=== PATIENT | female | born 1955 | race Caucasian/White ===

== ENCOUNTER 2021-01-24 08:56 | Inpatient (IN) | payer MEDICARE, OTHER ==
[~2021-01-24] VITALS: Ht 167.6 cm; Wt 88.0 kg
[2021-01-24] MEDS ORDERED: IV NS 1000 ML 1,000 ML IV ONE (10:00)
[2021-01-24] MEDS ORDERED: CEFTRIAXONE 1 G in IV DEXTROSE 5% 50 ML IV ONE (10:00)
[2021-01-24] MEDS ORDERED: DOXY100T2 PO (10:01)
[2021-01-24] MEDS ORDERED: THIA100T13 PO (10:01)
[2021-01-24] MEDS ORDERED: MULT-594 PO (10:01)
[2021-01-24] MEDS ORDERED: PANT40TA49 PO (10:01)
[2021-01-24] MEDS ORDERED: FOLI1TAB94 PO (10:01)
[2021-01-24] MEDS ORDERED: LACTOBACILLUS PO (10:01)
[2021-01-24] MEDS ORDERED: NITR100C6 PO (10:04)
[2021-01-24] MEDS ORDERED: CEFTRIAXONE /D5W 50ML IVPB **ER PYXIS IV ONE (10:06)
[2021-01-24 10:14] LABS: HEMATOCRIT 44.4 % (31.2-41.9); MEAN CORPUSCULAR HEMOGLOBIN 34.1 uug (24.7-32.8); MEAN CORPUSCULAR VOLUME 102.1 fL (75.5-95.3); PLATELET COUNT (AUTO) 298 K/uL (179-408)
[2021-01-24 10:36] LABS: CREATININE 1.3 mg/dL (0.6-1.3); POTASSIUM 3.9 mmol/L (3.5-5.1)
[2021-01-24 10:41] LABS: BILIRUBIN,DIRECT 0.2 mg/dL (0.0-0.2); BILIRUBIN,TOTAL 0.7 mg/dL (0.2-1.0)
[2021-01-24] MEDS ORDERED: MAGNESIUM HYDROXIDE 30 ML LIQUID UDC PO PRN (12:15)
[2021-01-24] MEDS ORDERED: MAG HYDROX/AL HYDROX/SIMETH 30 ML LIQUID UDC PO PRN (12:15)
[2021-01-24] MEDS ORDERED: TEMAZEPAM 7.5 MG CAPSULE PO PRN (12:15)
--- NOTE | 2021-01-24 12:47 | NUR ---
PT BEDDING WET, PT UNABLE TO STAND UP FOR CLEANING. PT REFUSED PERINEAL HYGIENE TO BE PROVIDED ON BED. REDNESS, SCANT AMOUNT OF PUSS NOTICED ON BORDER OF BOTH BUTTOCKS. Addendum: 01/24/21 at 1253 by NIKOLAS AWARE.
--- NOTE | 2021-01-24 13:00 | NUR ---
pt transfered to [facility] in stable condition. pt food tray sent with pt.
[2021-01-24 15:03] VITALS: BP 153/98
--- NOTE | 2021-01-24 15:15 | NUR ---
Admitted a 65 yrs old patient from ER with 5150 for GD due to she was found next to her significant other after several hrs, 911 was called noted patient was covered in feces and urine .On face to face assessment, patient is A/Ox1, forgetful, short term memory impaired, guarded, stated "It is .. Saturday..", denies SI/HI, denies AH/VH, believes that it is a mistake for her to be here, "I am not crazy..", depressed mood and angry affect, "I don't know why I am here..",unable to formulate a viable plan for self care.patient had wound on coccyx area .wound care consult ordered, unable to take picture due to patient refused.Dr. Ha aware of admission and order was done.
[2021-01-24 20:31] VITALS: BP 113/54
[2021-01-25 07:30] VITALS: BP 127/56
[2021-01-25 07:30] LABS: BILIRUBIN,TOTAL 0.5 mg/dL (0.2-1.0); CREATININE 0.9 mg/dL (0.6-1.3); POTASSIUM 3.6 mmol/L (3.5-5.1); TOTAL PROTEIN, SERUM 6.3 g/dL (6.4-8.2)
--- NOTE | 2021-01-25 09:32 | NUR ---
Firearms Report: Waste Disposal Leakage Tester completed and submitted a [employer] firearms report for 5150 grave disability certifications. A copy of report has been placed in patient chart.
[2021-01-25] MEDS: PANTOPRAZOLE SODIUM 40 MG TABLET.DR PO SCH (09:43)
[2021-01-25] MEDS: FOLIC ACID 1 MG TABLET PO SCH (09:43)
[2021-01-25] MEDS: THIAMINE HCL 100 MG TABLET PO SCH (09:45)
--- NOTE | 2021-01-25 09:47 | NUR ---
Treatment Plan: Patient refused to sign treatment plan due to depressed mood.
--- NOTE | 2021-01-25 09:55 | NUR ---
SAMEERA Initial Discharge Plan: Patient currently resides at [address] [place] [address] by herself. Patient has a son Jake Beltran ([phone]) who is involved in her care. Patient would like SNF placement upon discharge. SAMEERA will continue to work with patient, family, and MD to ensure a safe and proper discharge plan.
--- NOTE | 2021-01-25 10:00 | NUR ---
SAMEERA Family Contact: SW spoke with patient's son Jake Beltran ([phone]) and discussed treatment and discharge plan. Jake is agreeable with SNF options.
--- NOTE | 2021-01-25 10:21 | NUR ---
WOUND CARE CONSULT: PT PRESENTS WITH SACRAL DEEP TISSUE INJURY IN EVOLUTION WHICH EXTENDS TO BUTTOCKS, PRESENT ON ADMISSION. SOME VAGINAL BLEEDING NOTED. RN TO DISCUSS WITH MD. SURGICAL CONSULT CALLED TO DR COLBY. RECOMMENDATIONS MADE FOR SKIN PROTECTION AND WOUND CARE. DISCUSSED WITH NURSING STAFF. MD IN AGREEMENT WITH PLAN OF CARE. Addendum: 01/25/21 at 1025 by CONNIE QUESADA RN Amended: Links added.
[2021-01-25] MEDS: DOXYCYCLINE HYCLATE 100 MG TABLET PO SCH ×2 (10:22→18:10)
[2021-01-25] MEDS ORDERED: SERTRALINE HCL 50 MG TABLET PO SCH (13:00)
[2021-01-25 16:09] VITALS: BP 144/84
[2021-01-25 20:02] VITALS: BP 147/68
[2021-01-25] MEDS: Z GUARD REMEDY PASTE 57 GM TUBE TOP SCH (22:27)
[2021-01-26 07:30] VITALS: BP 124/71
[2021-01-26] MEDS: FOLIC ACID 1 MG TABLET PO SCH (09:22)
[2021-01-26] MEDS: THIAMINE HCL 100 MG TABLET PO SCH (09:22)
[2021-01-26] MEDS: PANTOPRAZOLE SODIUM 40 MG TABLET.DR PO SCH (09:22)
[2021-01-26] MEDS: DOXYCYCLINE HYCLATE 100 MG TABLET PO SCH ×2 (09:22→16:42)
[2021-01-26] MEDS: Z GUARD REMEDY PASTE 57 GM TUBE TOP SCH ×2 (09:23→16:12)
--- NOTE | 2021-01-26 11:14 | NUR ---
SAMEERA SNF Referral: SAMEERA faxed patient's referral packet to the following SNFs for review and placement: [facility] attention to [place] ( ) [facility] attention to [place] (fax: [phone])
--- NOTE | 2021-01-26 12:13 | NUR ---
Gps/Cap Cutter- Wounfd care to sacrococcygeal area done as ordered , encouraged to stay off her back, kept skin dry and clean, good hygiene was encouraged , site cleansed with NS pat dry, -Z-guard applied, site covered wit abd.
[2021-01-26] MEDS ORDERED: SERTRALINE HCL 50 MG TABLET PO SCH (13:00)
[2021-01-26 16:00] VITALS: BP 122/62
--- NOTE | 2021-01-26 17:22 | NUR ---
Gps/Dean Of Education- Wounfd care to sacrococcygeal area done second time this pm, right after her shower, noted scanty bleeding noted during wound care, encouraged to stay off her buttom when in bed, encouraged frequent repositioning. Lower ext. are very dry, poorly groomed toe naisl, skin callous /dryness noted, patches of redness on her heels /soles of her feet. Patient flat stayed in bed most of the afternoon after her shower, encouraged to verbalized needs and feelings.
[2021-01-26 20:00] VITALS: BP 165/70
[2021-01-27] MEDS: Z GUARD REMEDY PASTE 57 GM TUBE TOP PRN (01:38)
--- NOTE | 2021-01-27 06:21 | NUR ---
GPS: Pt.slept for 8.30 last night. Pt.was uncooperative during wound care to sacral area. Encouraged to stay on her sides only while in bed. Encouraged diaper change after each episodes of incontinence. Pt.is forgetful and with poor insight to present situation. Fall precautions observed. Will continue to monitor.
[2021-01-27 07:30] VITALS: BP 144/65
--- NOTE | 2021-01-27 08:32 | NUR ---
Gps/China Painter- Stayed up in the activity room during her breakfast . Melita patel. Instructed to go to the bathroom when needed , wears diaper. Encouraged pressure relief on her sacrococcygeal wounds
[2021-01-27] MEDS: PANTOPRAZOLE SODIUM 40 MG TABLET.DR PO SCH (08:42)
[2021-01-27] MEDS: DOXYCYCLINE HYCLATE 100 MG TABLET PO SCH ×2 (08:43→16:17)
[2021-01-27] MEDS: FOLIC ACID 1 MG TABLET PO SCH (08:43)
[2021-01-27] MEDS: Z GUARD REMEDY PASTE 57 GM TUBE TOP SCH ×2 (08:44→20:13)
[2021-01-27] MEDS: THIAMINE HCL 100 MG TABLET PO SCH (08:52)
--- NOTE | 2021-01-27 09:38 | NUR ---
SW SNF Referral: Patient is accepted at [facility] for placement.
--- NOTE | 2021-01-27 09:39 | NUR ---
SAMEERA Family Contact: SW spoke with patient's son, Jake Beltran ([phone]) and informed of patient being accepted at [facility] for placement and he is agreeable with this discharge plan.
[2021-01-27] MEDS: SERTRALINE HCL 50 MG TABLET PO SCH (12:28)
[2021-01-27] MEDS: NITROFURANTOIN/NITROFURAN MAC 100 MG CAPSULE PO SCH ×2 (13:00→22:19)
--- NOTE | 2021-01-27 14:31 | NUR ---
Gps/Artificial Leather Calender Operator- Large amount of bladder incontienence as well as stains of mushy stools while in bed, asked patient if she knowns when she needs to go to the bathroom , claimed sjnorth does, when asked why she didnt go to the bathroom she will not answers.. Noted urine paddel with stain of blood in her diaper and pads, wound care to sacrococcygeal area was done second time, whole bed sheets was changed, , hosp. gown soaked with urine, patient staying one side . When tried to clean her riri- area scanty blood smears noted, diaper appied , dressing to sacrococcygeal area secured. Will continue to monitor where scanty bleedings coming from .
--- NOTE | 2021-01-27 15:54 | NUR ---
Gps/Drill Press Operator Numerical Control- Patient claimed she does not know realyy where she's at, she thinks she is in a [facility]. Grey is oriented to her self , needed reorientation redirections from time to time . Slow in her responses,.. Walks around with her walker.
[2021-01-27] MEDS: LORAZEPAM 0.5 MG TABLET PO PRN (16:23)
[2021-01-27 16:36] VITALS: BP 156/78
[2021-01-27 20:19] VITALS: BP 136/70
--- NOTE | 2021-01-28 06:22 | NUR ---
GPS: Pt.slept for 7.15 last night. Showered by staff earlier and wound care was done to sacral/buttocks area as ordered. Re-directed prn. Behavior monitoring continues.
[2021-01-28 07:30] VITALS: BP 175/75
[2021-01-28] MEDS: Z GUARD REMEDY PASTE 57 GM TUBE TOP SCH ×2 (09:00→20:24)
[2021-01-28] MEDS: NITROFURANTOIN/NITROFURAN MAC 100 MG CAPSULE PO SCH ×2 (09:00→20:21)
[2021-01-28] MEDS: FOLIC ACID 1 MG TABLET PO SCH (09:00)
[2021-01-28] MEDS: THIAMINE HCL 100 MG TABLET PO SCH (09:00)
[2021-01-28] MEDS: DOXYCYCLINE HYCLATE 100 MG TABLET PO SCH ×2 (09:00→16:21)
[2021-01-28] MEDS: PANTOPRAZOLE SODIUM 40 MG TABLET.DR PO SCH (09:00)
--- NOTE | 2021-01-28 11:49 | NUR ---
Received patient in bed, verbally responsive, cooperative upon assessment. Dressing changed on the sacral area. All due meds given per MD order. Patient denies of any pain . All needs met promptly.
[2021-01-28] MEDS: SERTRALINE HCL 50 MG TABLET PO SCH (12:09)
[2021-01-28 15:14] VITALS: BP 173/77
[2021-01-28 19:58] VITALS: BP 148/72
[2021-01-29] MEDS: DOXYCYCLINE HYCLATE 100 MG TABLET PO SCH ×2 (08:07→17:03)
[2021-01-29] MEDS: NITROFURANTOIN/NITROFURAN MAC 100 MG CAPSULE PO SCH ×2 (08:07→20:05)
[2021-01-29] MEDS: THIAMINE HCL 100 MG TABLET PO SCH (08:07)
[2021-01-29] MEDS: PANTOPRAZOLE SODIUM 40 MG TABLET.DR PO SCH (08:07)
[2021-01-29] MEDS: Z GUARD REMEDY PASTE 57 GM TUBE TOP SCH ×2 (08:08→20:06)
[2021-01-29] MEDS: FOLIC ACID 1 MG TABLET PO SCH (08:08)
[2021-01-29 09:09] VITALS: BP 158/76
[2021-01-29] MEDS: SERTRALINE HCL 50 MG TABLET PO SCH (12:28)
[2021-01-29 16:34] VITALS: BP 149/77
--- NOTE | 2021-01-29 18:20 | NUR ---
patient is isolative remains mod. assisted with all ADLS, vital sign stable ,compliant with all medication ,denies any pain or discomfort. wound care done ,able to reposition in bed by her self keep skin dry and clean at all time.
[2021-01-29] MEDS: LORAZEPAM 0.5 MG TABLET PO PRN (20:05)
[2021-01-29 20:15] VITALS: BP 103/64
[2021-01-29] MEDS: ACETAMINOPHEN 325 MG TABLET PO PRN (20:15)
--- NOTE | 2021-01-30 04:44 | NUR ---
Pt refused to get out of bed the entire shift. She remains depressed and anxious, prn Ativan administered for restlessness and anxiety. Denies SI, verbally contracts for safety. VS stable, denies pain.
[2021-01-30 06:49] LABS: HEMATOCRIT 37.1 % (31.2-41.9); MEAN CORPUSCULAR HEMOGLOBIN 34.6 uug (24.7-32.8); MEAN CORPUSCULAR VOLUME 98.7 fL (75.5-95.3); PLATELET COUNT (AUTO) 345 K/uL (179-408)
[2021-01-30 07:44] VITALS: BP 131/73
[2021-01-30] MEDS: THIAMINE HCL 100 MG TABLET PO SCH (08:08)
[2021-01-30] MEDS: FOLIC ACID 1 MG TABLET PO SCH (08:08)
[2021-01-30] MEDS: NITROFURANTOIN/NITROFURAN MAC 100 MG CAPSULE PO SCH ×2 (08:08→20:33)
[2021-01-30] MEDS: PANTOPRAZOLE SODIUM 40 MG TABLET.DR PO SCH (08:09)
[2021-01-30] MEDS: Z GUARD REMEDY PASTE 57 GM TUBE TOP SCH ×2 (08:09→20:34)
--- NOTE | 2021-01-30 09:34 | NUR ---
SAMEERA PC Hearing: Patient had 5250 probable cause hearing today and it was upheld for grave disability.
[2021-01-30] MEDS: SERTRALINE HCL 50 MG TABLET PO SCH (12:16)
[2021-01-30] MEDS: PROTEIN SUPPLEMENT (PROSTAT) 30 ML LIQUID PO SCH ×2 (13:07→16:46)
[2021-01-30 16:47] VITALS: BP 143/55
[2021-01-30 20:07] VITALS: BP 142/61
[2021-01-31] MEDS: PANTOPRAZOLE SODIUM 40 MG TABLET.DR PO SCH (08:12)
[2021-01-31] MEDS: FOLIC ACID 1 MG TABLET PO SCH (08:12)
[2021-01-31] MEDS: NITROFURANTOIN/NITROFURAN MAC 100 MG CAPSULE PO SCH ×2 (08:12→21:16)
[2021-01-31 09:00] VITALS: BP 140/82
[2021-01-31] MEDS: PROTEIN SUPPLEMENT (PROSTAT) 30 ML LIQUID PO SCH ×3 (09:35→17:59)
[2021-01-31] MEDS: Z GUARD REMEDY PASTE 57 GM TUBE TOP SCH ×2 (09:35→21:16)
[2021-01-31] MEDS: THIAMINE HCL 100 MG TABLET PO SCH (09:35)
--- NOTE | 2021-01-31 11:34 | NUR ---
GPS: pt on bed, verbally aggressive to staff and psychiatrist that visited her. pt refused medications offered. Addendum: 01/31/21 at 1212 by DOMITILA BRAVO LVN GPS: Nursing Notes: Wrong Patient: Disregard above charting, charted on the wrong patient.
[2021-01-31] MEDS: SERTRALINE HCL 50 MG TABLET PO SCH (12:51)
--- NOTE | 2021-01-31 13:06 | NUR ---
GPS: Pt alert and verbally responsive. cooperative with care. treatment done to sacral area. no episode of aggressive behavior at this time. pt likes to stay at her bedroom. compliant with medication.
[2021-01-31 16:00] VITALS: BP 158/68
--- NOTE | 2021-01-31 19:06 | NUR ---
GPS: Treatment done again for the second time. pt took off the diaper and throw it behind the bed. pt compliant with medication. no aggressive behavior noted. cooperative with care.
[2021-01-31 20:51] VITALS: BP 145/71
[2021-02-01 07:30] VITALS: BP 111/48
[2021-02-01] MEDS: FOLIC ACID 1 MG TABLET PO SCH (08:42)
[2021-02-01] MEDS: PANTOPRAZOLE SODIUM 40 MG TABLET.DR PO SCH (08:43)
[2021-02-01] MEDS: THIAMINE HCL 100 MG TABLET PO SCH (08:43)
[2021-02-01] MEDS: NITROFURANTOIN/NITROFURAN MAC 100 MG CAPSULE PO SCH ×2 (08:43→20:40)
[2021-02-01] MEDS: PROTEIN SUPPLEMENT (PROSTAT) 30 ML LIQUID PO SCH ×3 (08:43→16:46)
[2021-02-01] MEDS: Z GUARD REMEDY PASTE 57 GM TUBE TOP SCH ×2 (08:43→20:48)
--- NOTE | 2021-02-01 09:30 | NUR ---
GPS: Received patient in bed, verbally responsive, cooperative upon assessment. Dressing changed on the sacral area. Patient denies of any pain . All needs met promptly. continue plan of care.
[2021-02-01] MEDS: SERTRALINE HCL 50 MG TABLET PO SCH (12:32)
[2021-02-01 16:00] VITALS: BP 142/47
[2021-02-01 19:45] VITALS: BP 137/70
[2021-02-02 07:30] VITALS: BP 157/75
[2021-02-02] MEDS: FOLIC ACID 1 MG TABLET PO SCH (08:59)
[2021-02-02] MEDS: THIAMINE HCL 100 MG TABLET PO SCH (08:59)
[2021-02-02] MEDS: PANTOPRAZOLE SODIUM 40 MG TABLET.DR PO SCH (08:59)
[2021-02-02] MEDS: NITROFURANTOIN/NITROFURAN MAC 100 MG CAPSULE PO SCH ×2 (08:59→20:16)
[2021-02-02] MEDS: PROTEIN SUPPLEMENT (PROSTAT) 30 ML LIQUID PO SCH ×3 (09:00→17:00)
[2021-02-02] MEDS: Z GUARD REMEDY PASTE 57 GM TUBE TOP SCH ×2 (12:15→20:14)
[2021-02-02] MEDS: SERTRALINE HCL 50 MG TABLET PO SCH (13:29)
[2021-02-02] MEDS: ACETAMINOPHEN 325 MG TABLET PO PRN ×2 (13:29→17:19)
--- NOTE | 2021-02-02 13:45 | NUR ---
Gps/Plate Worker Helper- Wound care to sacrococcygeal area done as ordered, scanty bleeding from her diaper noted, unable to note when bleedings is really coming from. Good riri-care was rendered. , open area from wound, yellowish discolorations , Encouraged pressure relief, staying off her back. Lower ext. dry, poorly groomed toenails.
[2021-02-02 16:07] VITALS: BP 163/62
[2021-02-02 19:59] VITALS: BP 121/60
[2021-02-03] MEDS: Z GUARD REMEDY PASTE 57 GM TUBE TOP PRN (05:56)
[2021-02-03] MEDS: Z GUARD REMEDY PASTE 57 GM TUBE TOP SCH ×2 (08:07→20:07)
[2021-02-03] MEDS: FOLIC ACID 1 MG TABLET PO SCH (08:07)
[2021-02-03] MEDS: PANTOPRAZOLE SODIUM 40 MG TABLET.DR PO SCH (08:07)
[2021-02-03] MEDS: PROTEIN SUPPLEMENT (PROSTAT) 30 ML LIQUID PO SCH ×3 (08:07→16:13)
[2021-02-03] MEDS: THIAMINE HCL 100 MG TABLET PO SCH (08:07)
[2021-02-03 08:49] VITALS: BP 134/71
--- NOTE | 2021-02-03 13:06 | NUR ---
SW Family Contact: This SW spoke with patients son Jake ([phone]) and stated that pt is accepted at [facility] and will be discharged Saturday02/06/21. He was agreeable with this plan.
[2021-02-03] MEDS: SERTRALINE HCL 50 MG TABLET PO SCH (13:22)
[2021-02-03 16:49] VITALS: BP 172/80
--- NOTE | 2021-02-03 17:01 | NUR ---
Patient refuse to get up from bed, compliant with medication. Patient had shower and able to change dressing, reposition and ecourage patient to turn side for skin care. no agitation noted. will continue monitor
[2021-02-03 17:53] VITALS: BP 128/59
[2021-02-03 19:45] VITALS: BP 145/76
--- NOTE | 2021-02-04 00:42 | NUR ---
GPS: Asleep at this time. Wound care to sacral /buttocks area done earlier as ordered. Continues to reposition self from side to side Q2 hrs and prn. Denied SI. Will continue to monitor.
[2021-02-04] MEDS: Z GUARD REMEDY PASTE 57 GM TUBE TOP PRN (06:37)
[2021-02-04 07:30] VITALS: BP 136/36
[2021-02-04] MEDS: FOLIC ACID 1 MG TABLET PO SCH (08:42)
[2021-02-04] MEDS: Z GUARD REMEDY PASTE 57 GM TUBE TOP SCH ×2 (08:42→22:02)
[2021-02-04] MEDS: THIAMINE HCL 100 MG TABLET PO SCH (08:42)
[2021-02-04] MEDS: PROTEIN SUPPLEMENT (PROSTAT) 30 ML LIQUID PO SCH ×3 (08:42→16:14)
[2021-02-04] MEDS: PANTOPRAZOLE SODIUM 40 MG TABLET.DR PO SCH (08:42)
[2021-02-04] MEDS: SERTRALINE HCL 50 MG TABLET PO SCH (14:22)
[2021-02-04] MEDS: ACETAMINOPHEN 325 MG TABLET PO PRN (14:23)
--- NOTE | 2021-02-04 15:04 | NUR ---
Gps/Gang Worker- Patient remains in her room in bed, filty, noted bowel incontinence , patient not aware she had bowel movement, gowns wet , pt. removed her diaper, dressings to coccygeal wound off. Good hygiene/skin care provided, washes riri-area with soap and water, kept dry, wound care cleansed with NS pat dry, z-guard applied to to open area, adaptic, covered with 4x4s, and abd dressings applied, diaper also applied to secure the coccygeal wound. . Instructed patient to stay off her back , encouraged to attend her group therapy. Answer to simple questions, but pt. has poor initiation, needed prompting and cueing to initiate tasks.
[2021-02-04 16:00] VITALS: BP 125/64
[2021-02-04 20:00] VITALS: BP 126/61
--- NOTE | 2021-02-05 05:24 | NUR ---
PT.SLEPT FOR 8.30 HRS.REFUSED TO TAKE A SHOWER WHEN OFFERED.DRESSING CHANGED TO SACRAL WOUND.ENC.TO GET UP TO BE CLEANED.AMBULATES WITH FWW.NO C/O MADE.IN NO ACUTE DISTRESS.NO OTHER BEHAVIORAL ISSUES.WILL COTINUE TO MONITOR.
[2021-02-05 07:30] VITALS: BP 154/84
[2021-02-05] MEDS: FOLIC ACID 1 MG TABLET PO SCH (08:15)
[2021-02-05] MEDS: THIAMINE HCL 100 MG TABLET PO SCH (08:15)
[2021-02-05] MEDS: Z GUARD REMEDY PASTE 57 GM TUBE TOP SCH ×2 (08:15→21:46)
[2021-02-05] MEDS: PANTOPRAZOLE SODIUM 40 MG TABLET.DR PO SCH (08:15)
--- NOTE | 2021-02-05 09:00 | NUR ---
RECEIVED PATIENT IN THE D/ROOM AFTER HER SHOWER EATING YHER BREAKFAST SHE IS ALERT AND COOPERATIVE AT THIS TIME COMPLIANT WITH MEDICATIONS AND CARE WILL CONTINUE TO OBSERVE AND PROVIDE CARE.
[2021-02-05] MEDS: PROTEIN SUPPLEMENT (PROSTAT) 30 ML LIQUID PO SCH ×3 (09:20→16:30)
[2021-02-05] MEDS: SERTRALINE HCL 50 MG TABLET PO SCH (13:04)
--- NOTE | 2021-02-05 13:30 | NUR ---
PATIENT NOTED TO BE INCONTINENT OF BOWEL REMOVED HER DIAPER AND SPRED FECES ALL OVER HER BODY BED FLOOR ETC BATHE AND DRESSING AND DIAPER CHANGED PATIENT ENCOURAGED TO NOT TOUCH HER FECES OR PLAY WITH IT SHE IS CONFUSED AND DISORIENTED AT THIS TIME.
[2021-02-05 16:00] VITALS: BP 152/65
--- NOTE | 2021-02-05 18:00 | NUR ---
ANOTHER EPISODE OF INCONTINENT BOWEL ASSISTED WITH CLEAN UP AND DRESSING REAPPLIED MADE COMFORTABLE SHE IS COMPLIANT WITH MEDICATIONS AND CARE WILL CONTINUE TO OBSERVE.
--- NOTE | 2021-02-05 20:00 | NUR ---
RECEIVED PATIENT IN HER ROOM IN BED. SHE IS NOTED AWAKE A/O X 1. SHE IS NOTED WITHDRAWN, AND ISOLATED. IMPAIRED INSIGHT AND JUDGMENT IS NOTED TO THE REASON FOR HER ADMISSION TO MHU. SHE DENIED SI/HI/VH/AH/ SHE IS ABLE TO VERBALLY CFS. SAFETY AND FALL PRECAUTION ARE IN PLACE. PATIENT IS REASSURE FOR HER SAFETY. PATIENT WAS GIVEN PO FLUIDS AND SNACKS. WILL [id number] TO MONITOR.
[2021-02-05 20:14] VITALS: BP 154/68
--- NOTE | 2021-02-06 06:29 | NUR ---
PATIENT SLEPT FOR APPROX. 5.45 HOURS THROUGH THE NIGHT. WOUND CARE WAS GIVEN. NOSE SWAB FOR COVID 19 AG RAPID WAS COLLECTED AND SENT TO LAB FOR HER INCOMING DISCHARGED. PATIENT COMPLIANT WITH MEDICATION REGIMENT, DIET AND PLAN OF CARE. SHE IS AWARE OF HER DISCHARGE TO [facility]. WILL CONTINUE TO MONITOR.
[2021-02-06 07:09] LABS: MEAN CORPUSCULAR HEMOGLOBIN 33.4 uug (24.7-32.8); MEAN CORPUSCULAR VOLUME 97.6 fL (75.5-95.3); PLATELET COUNT (AUTO) 375 K/uL (179-408)
--- NOTE | 2021-02-06 07:30 | NUR ---
Received report from ELADIO Portillo. All questions, comments, and concerns were addressed. Received patient asleep in her assigned room. Bed is in low and locked position.
[2021-02-06 07:41] LABS: BILIRUBIN,TOTAL 0.4 mg/dL (0.2-1.0); CREATININE 0.6 mg/dL (0.6-1.3); MAGNESIUM 1.8 mg/dL (1.8-2.4); PHOSPHOROUS 3.6 mg/dL (2.5-4.9); POTASSIUM 2.9 mmol/L (3.5-5.1); TOTAL PROTEIN, SERUM 6.7 g/dL (6.4-8.2)
[2021-02-06 07:54] VITALS: BP 118/73
--- NOTE | 2021-02-06 08:30 | NUR ---
SW Discharge Note: Patient will be discharged to a locked nursing home facility to [address] [address]; ([phone]) via ambulance transportation at 1PM. Electrical Continuity Tester spoke with Nimo, Pharmacy Consultant at [facility]; ([phone]), who stated patient will be accepted at facility today. Patient is alert and oriented x4 and is not able to plan for self-care at this time but is willing to accept care provided for her at the facility. Patient denies any suicidal or homicidal ideations. Patient is aware and agreeable with discharge plans. Patients son, Jake Beltran ([phone]) is aware and agreeable with discharge plans. Patient will continue to follow-up with her Psychiatrist Dr. Ha and Master Barber Dr. Dc at [address] [address]; ([phone]). Patient will follow-up at the center. Patient presents with euthymic mood and congruent affect.
[2021-02-06] MEDS ORDERED: METOPROLOL TARTRATE 25 MG TABLET PO SCH (09:00)
[2021-02-06] MEDS: FOLIC ACID 1 MG TABLET PO SCH (09:04)
[2021-02-06 09:05] VITALS: BP 118/73
[2021-02-06] MEDS: THIAMINE HCL 100 MG TABLET PO SCH (09:05)
[2021-02-06] MEDS: PANTOPRAZOLE SODIUM 40 MG TABLET.DR PO SCH (09:05)
[2021-02-06] MEDS: Z GUARD REMEDY PASTE 57 GM TUBE TOP SCH (09:05)
[2021-02-06] MEDS: PROTEIN SUPPLEMENT (PROSTAT) 30 ML LIQUID PO SCH ×2 (09:08→12:53)
[2021-02-06] MEDS: POTASSIUM CHLORIDE 10 MEQ TAB.PRT.SR PO SCH ×2 (10:41→12:53)
--- NOTE | 2021-02-06 12:09 | NUR ---
Potassium 2.9. Whit Larsen NP ordered Potassium 30 mEq x2 to be given today. This information writer called [employer] to page Whit Larsen to notify that this patient is scheduled for discharge today and if any further orders would be given. Waiting call back. Addendum: 02/06/21 at 1459 by CHRISTOPHE KIDD RN Orders given to administer the 2 doses of K-dur and discharge patient.
[2021-02-06] MEDS: SERTRALINE HCL 50 MG TABLET PO SCH (12:53)
--- NOTE | 2021-02-06 14:00 | NUR ---
Patient is alert and oriented. She is guarded and withdrawn to her assigned room. Patient is adherent with medication, no adverse reaction noted. Patient denies suicidal and homicidal ideation. Patient is able to ambulate with FWW, able to tolerate food and fluids. Patient noted with large BM this morning. Wound treatment done on sacral DTI per orders from Surgical/Wound Consult. Wound is healing appropriately. No odor, no drainage, and no pain reported. Photo taken and placed in chart. Addendum: 02/06/21 at 1518 by CHRISTOPHE KIDD RN Patient stated she received the [employer] COVID-19 vaccination in December 2020.
--- NOTE | 2021-02-06 15:30 | NUR ---
DISCHARGE NOTE: Patient was discharged to [facility] at [address] [place] [address]; ([phone]) via non-emergency ambulance transportation. Patients son, Jake Beltran, ([phone]) is aware and agreeable with discharge plans. Patient's belongings and valuables inventoried with patient and returned. Patient provided with education about dicharge instructions, plans for follow up care, and discharge medications. Patient is able to verbalize understanding. Patient escorted off the unit accompanied by nursing staff and non-emergency ambulance staff with no adverse event. Patient denies suicidal and homicidal ideation. Patient noted with open wound on sacral/coccyx area. Wound treatment done per order. Discharge photo taken and placed in chart.
== END 2021-02-06 15:30 | DRG 885 ==
LOC: ER 08:56 → GPS 12:05
PROVIDERS: ADMIT Psychiatry & Neurology Psychosomatic Medicine; ATTEND Nurse Practitioner Acute Care
DX: F33.3 Major depressive disorder, recurrent, severe with psychotic symptoms (principal); E43 Unspecified severe protein-calorie malnutrition; N17.0 Acute kidney failure with tubular necrosis; N39.0 Urinary tract infection, site not specified; L97.419 Non-pressure chronic ulcer of right heel and midfoot with unspecified severity; D68.59 Other primary thrombophilia; J45.909 Unspecified asthma, uncomplicated; E66.9 Obesity, unspecified; B96.89 Other specified bacterial agents as the cause of diseases classified elsewhere; L89.156 Pressure-induced deep tissue damage of sacral region; D75.89 Other specified diseases of blood and blood-forming organs; L89.326 Pressure-induced deep tissue damage of left buttock; L89.316 Pressure-induced deep tissue damage of right buttock; E87.6 Hypokalemia; Z68.32 Body mass index [BMI] 32.0-32.9, adult; I10 Essential (primary) hypertension; R93.89 Abnormal findings on diagnostic imaging of other specified body structures; F10.20 Alcohol dependence, uncomplicated; K21.9 Gastro-esophageal reflux disease without esophagitis
CPT/HCPCS: 36415; 76856; 83605; 83735; 84100; 84443; 85025; A4663; A6209; J0696; J7030